=== PATIENT | female | born 1970 | race African-American/Black ===

== ENCOUNTER 2019-03-24 05:00 | Inpatient (IN) ==
[2019-03-25] MEDS ORDERED: DEXTROSE 10% 250 ML BAG IV PRN (10:21)
[2019-03-25] MEDS ORDERED: GLUCAGON 1 MG VIAL IM PRN (10:21)
[2019-03-25] MEDS ORDERED: CEFUROXIME INJ 1,500 MG in SODIUM CHLORIDE 0.9% 100 ML IV ONE (10:21)
[2019-03-25 10:54] LABS: Basophils % 0.7 % (0.0-0.8); Eosinophils # 0.2 10*3/uL (0.0-0.87); Hematocrit 39.7 VOL% (35.7-47.0); Hemoglobin 12.5 GM/DL (12.0-16.0); Immature Granulocytes % 0.2 %; Immature Granulocytes Absolute 0.01 #; Lymphocytes # 1.5 10*3/uL (1.4-4.0); Lymphocytes % 25.5 % (21.3-54.2); Mean Corpuscular HGB Conc 31.5 GM/DL (32-36); Mean Corpuscular Volume 85.6 FL (87-102); Mean Platelet Volume 12.1 FL (9.6-12.0); Neutrophils % 63.6 % (38.7-73.9); Platelet Count 207 T/CUMM (130-400); Red Blood Count 4.64 MC/CUMM (3.8-5.5); Red Cell Distribution Width 13.3 % (9.3-17.3)
[2019-03-25 11:26] LABS: Alanine Aminotransferase 24 U/L (13-56); Albumin 3.6 G/DL (3.4-5.0); Alkaline Phosphatase 67 U/L (45-117); Aspartate Amino Transferase 17 U/L (0-37); Bilirubin,Total < 0.39 MG/DL (0.2-1.0); Blood Urea Nitrogen 18 MG/DL (7-18); Estimated Glom Filtration Rate 99 ML/MIN; Glucose 142 MG/DL (74-106); Total Protein 8.4 G/DL (6.4-8.3)
[2019-03-25] MEDS: INSULIN LISPRO 100 UNIT/ML SUBCUT SCH ×3 (11:59→23:35)
[2019-03-25] MEDS ORDERED: NITROGLYCERIN SL 0.4 MG TABLET SL PRN (12:00)
[2019-03-25 12:30] LABS: ABG Base Excess 1.5 MMOL/L (-2.5-2.5); ABG HCO3 25.7 MMOL/L (20-26); ABG Oxygen Saturation 96.2 % (95-100); ABG PCO2 41.6 MM HG (35-48); ABG PH 7.409 (7.35-7.45); ABG PO2 82.4 MM HG (80-95); ABG TCO2 23.2 MMOL/L (23-27); Allen Test Positive; Pt O2 Delivery Device Room Air
[2019-03-25] MEDS ORDERED: CLORAZEPATE 3.75 MG TABLET PO PRN (12:32)
[2019-03-25] MEDS ORDERED: DIAZEPAM 5 MG TABLET PO ONE (16:31)
[2019-03-25] MEDS ORDERED: RANITIDINE 150 MG TABLET PO ONE (16:31)
[2019-03-25] MEDS: CHLORHEXIDINE 4% SOLN 118 ML BOTTLE TOP SCH ×2 (16:59→23:34)
[2019-03-25] MEDS: SODIUM CHLORIDE 0.9% 1,000 ML IV SCH (20:00)
[2019-03-25] MEDS: PANTOPRAZOLE 40 MG TABLET PO SCH (20:52)
[2019-03-25] MEDS: hydrALAZINE 25 MG TABLET PO SCH (20:52)
[2019-03-25] MEDS: CHLORHEXIDINE 0.12% ORAL RINSE 60 ML BOTTLE SWISH/SPIT SCH (20:53)
[2019-03-25] MEDS ORDERED: traZODone 50 MG TABLET PO PRN (21:00)
[2019-03-26] MEDS ORDERED: PAPAVERINE 60 MG/2 ML VIAL ONE (04:24)
[2019-03-26] MEDS ORDERED: VANCOMYCIN 1,000 MG VIAL ONE (04:25)
[2019-03-26] MEDS ORDERED: VANCOMYCIN 500 MG VIAL ONE (04:25)
[2019-03-26] MEDS ORDERED: VANCOMYCIN INJ 1,000 MG in SODIUM CHLORIDE 0.9% 250 ML IV ONE (05:00)
[2019-03-26] MEDS ORDERED: DIAZEPAM 5 MG TABLET PO ONE (06:00)
[2019-03-26] MEDS ORDERED: RANITIDINE 150 MG TABLET PO ONE (06:00)
[2019-03-26] MEDS ORDERED: MIDAZOLAM 10 MG/2 ML VIAL ONE ×2 (06:10)
[2019-03-26] MEDS ORDERED: SUFentanil 250 MCG/5 ML AMP ONE (06:10)
[2019-03-26 08:00] LABS: ABG Base Excess 0.6 MMOL/L (-2.5-2.5); ABG HCO3 24.2 MMOL/L (20-26); ABG Oxygen Saturation 99.3 % (95-100); ABG PH 7.457 (7.35-7.45); ABG PO2 496.5 MM HG (80-95); ABG TCO2 25.2 MMOL/L (23-27); Glucose Heart Surgery 116 MG/DL (74-106); Hemoglobin Heart Surgery 11.1 G/DL (12.0-16.0); Ionized Calcium Arterial 1.08 MMOL/L (1.21-1.46); PH Patient Temp Arterial 7.457; PO2 Patient Temp Arterial 496.5 MM HG; Patient Temperature 37 CELCIUS; Potassium Heart/CVR 3.2 MMOL/L (3.5-5.1); Sodium Heart/CVR 138 MMOL/L (135-145)
[2019-03-26 08:40] LABS: Apearance,Urine CLEAR (Clear); Bacteria,Urine Occasional /HPF (Few); Bilirubin,Urine Negative (Negative); Blood, Urine Negative (Negative); Glucose,Urine (UA) >=500 mg/dL (Negative); Ketones,Urine Negative (Negative); Nitrite,Urine Negative (Negative); Protein,Urine Negative; Squamous Epithelial Cell,Urine Occasional /HPF (0-10); Urine Color Straw (Yellow); Urine Specific Gravity 1.022 (1.001-1.035); Urine Urobilinogen < 2.0 EU/DL (0.2-1.0); WBC,Urine <1 /HPF (0-6)
[2019-03-26] MEDS ORDERED: PHENYLEPHRINE DRIP 40 MG/250 ML PREMIX IV ONE (08:44)
[2019-03-26] MEDS ORDERED: HEPARIN/NACL 0.9% 2 UNITS/ML 500 ML IV ONE (09:44)
[2019-03-26] MEDS ORDERED: PHENYLEPHRINE DRIP 20 MG/250 ML PREMIX IV ONE (09:44)
[2019-03-26] MEDS ORDERED: NITROGLYCERIN DRIP 50 MG/250 ML BOTTLE IV ONE (09:44)
[2019-03-26] MEDS ORDERED: AMINOCAPROIC ACID 5,000 MG/20 ML VIAL ONE (09:44)
[2019-03-26 09:49] LABS: Hematocrit Heart Surgery 21.7 PERCENT (37-47); Hemoglobin Heart Surgery 6.9 G/DL (12.0-16.0); PCO2 Patient Temp Venous 31.8 MM HG; PH Patient Temp Venous 7.501; PO2 Patient Temp Venous 33.6 MM HG; VBG Base Excess 2.1 MEQ/L (0-4); VBG HCO3 26.1 MEQ/L (24-28); VBG Oxygen Saturation 80.6 %; VBG PCO2 36.8 MMHG (41-51); VBG PH 7.456; VBG PO2 41.4 MMHG (17-40)
[2019-03-26 10:21] LABS: Hemoglobin Heart Surgery 7.7 G/DL (12.0-16.0); PCO2 Patient Temp Venous 35.1 MM HG; PH Patient Temp Venous 7.461; PO2 Patient Temp Venous 39.1 MM HG; Potassium Heart/CVR 3.9 MMOL/L (3.5-5.1); VBG Base Excess 1.5 MEQ/L (0-4); VBG HCO3 25.6 MEQ/L (24-28); VBG Oxygen Saturation 84.7 %; VBG PCO2 40.5 MMHG (41-51); VBG PH 7.417
[2019-03-26 10:53] LABS: Hematocrit Heart Surgery 26.5 PERCENT (37-47); Hemoglobin Heart Surgery 8.5 G/DL (12.0-16.0); PH Patient Temp Venous 7.421; PO2 Patient Temp Venous 42.4 MM HG; Potassium Heart/CVR 4.1 MMOL/L (3.5-5.1); VBG Base Excess 1.6 MEQ/L (0-4); VBG HCO3 25.5 MEQ/L (24-28); VBG Oxygen Saturation 78.4 %; VBG PH 7.421; VBG PO2 42.4 MMHG (17-40)
[2019-03-26 11:22] LABS: Hematocrit Heart Surgery 25.1 PERCENT (37-47); Hemoglobin Heart Surgery 8.1 G/DL (12.0-16.0); PCO2 Patient Temp Venous 33.9 MM HG; PH Patient Temp Venous 7.472; PO2 Patient Temp Venous 42.5 MM HG; Potassium Heart/CVR 4.2 MMOL/L (3.5-5.1); VBG Base Excess 1.4 MEQ/L (0-4); VBG HCO3 25.4 MEQ/L (24-28); VBG PCO2 33.9 MMHG (41-51); VBG PH 7.472; VBG PO2 42.5 MMHG (17-40)
[2019-03-26] MEDS ORDERED: LIDOCAINE 2% 5 ML VIAL ONE ×2 (11:43→12:46)
[2019-03-26] MEDS ORDERED: MANNITOL 100 GM/500 ML BAG IV ONE (11:43)
[2019-03-26] MEDS ORDERED: DEXTROSE 5% KCL 20 MEQ 20 MEQ/1,000 ML BAG IV ONE (11:43)
[2019-03-26] MEDS ORDERED: MAGNESIUM SULFATE 5 GM/10 ML VIAL IV ONE (11:44)
[2019-03-26] MEDS ORDERED: ALBUMIN 25% 25 GM/100 ML VIAL IV ONE (11:44)
[2019-03-26] MEDS ORDERED: FUROSEMIDE 20 MG/2 ML VIAL ONE (11:44)
[2019-03-26] MEDS ORDERED: PROTAMINE SULFATE 250 MG/25 ML VIAL IV ONE (11:44)
[2019-03-26] MEDS ORDERED: ALBUMIN 5% 12.5 GM/250 ML VIAL IV ONE (11:44)
[2019-03-26] MEDS ORDERED: SODIUM BICARBONATE 50 MEQ/50 ML VIAL IV ONE (11:44)
[2019-03-26] MEDS ORDERED: methylPREDNISolone SOD SUC 1,000 MG/8 ML VIAL ONE (11:44)
[2019-03-26] MEDS ORDERED: HEPARIN 10,000 UNIT/10 ML VIAL ONE (11:44)
[2019-03-26 11:58] LABS: ABG Base Excess -0.1 MMOL/L (-2.5-2.5); ABG HCO3 24.3 MMOL/L (20-26); ABG Oxygen Saturation 99.7 % (95-100); ABG PH 7.421 (7.35-7.45); ABG TCO2 22.3 MMOL/L (23-27); Glucose Heart Surgery 212 MG/DL (74-106); Hematocrit Heart Surgery 26.2 PERCENT (37-47); Hemoglobin Heart Surgery 8.4 G/DL (12.0-16.0); Ionized Calcium Arterial 1.22 MMOL/L (1.21-1.46); PH Patient Temp Arterial 7.421; Patient Temperature 37 CELCIUS; Potassium Heart/CVR 3.8 MMOL/L (3.5-5.1); Sodium Heart/CVR 140 MMOL/L (135-145)
[2019-03-26] MEDS ORDERED: THROMBIN TOPICAL (RECOMBINANT) 5,000 UNIT VIAL TOP ONE (11:59)
[2019-03-26] MEDS ORDERED: SEVOFLURANE 1 UNIT/15 MINUTE INH ONE (12:47)
[2019-03-26] MEDS ORDERED: VECURONIUM 10 MG VIAL IV ONE (12:47)
[2019-03-26] MEDS ORDERED: ETOMIDATE 40 MG/20 ML VIAL IV ONE (12:47)
[2019-03-26] MEDS ORDERED: SODIUM CHLORIDE 0.9% 100 ML IV ONE (12:47)
[2019-03-26] MEDS ORDERED: LACTATED RINGERS 1,000 ML IV ONE (12:47)
[2019-03-26] MEDS ORDERED: SODIUM CHLORIDE 0.9% 250 ML IV ONE (12:47)
[2019-03-26] MEDS ORDERED: MAGNESIUM SULF RIDER 2 GM in PREMIX 1 EACH IV PRN (12:48)
[2019-03-26] MEDS ORDERED: SODIUM CHLORIDE 0.45% 1,000 ML IV SCH ×2 (12:48)
[2019-03-26] MEDS ORDERED: ONDANSETRON 4 MG/2 ML VIAL IV PRN (12:48)
[2019-03-26] MEDS ORDERED: MIDAZOLAM 10 MG/2 ML VIAL IV PRN (12:48)
[2019-03-26] MEDS ORDERED: NITROPRUSSIDE 100 MG in DEXTROSE 5% 250 ML IV PRN (12:48)
[2019-03-26] MEDS ORDERED: MORPHINE 10 MG/1 ML VIAL IV PRN (12:48)
[2019-03-26] MEDS ORDERED: INSULIN REGULAR 100 UNIT/ML IV ONE (12:48)
[2019-03-26] MEDS ORDERED: MAGNESIUM SULF RIDER 4 GM in PREMIX 1 EACH IV PRN (12:48)
[2019-03-26] MEDS ORDERED: INSULIN REGULAR DRIP 100 ML IV SCH (12:48)
[2019-03-26] MEDS ORDERED: CALCIUM CHLORIDE 1,000 MG/10 ML SYRINGE IV PRN (12:48)
[2019-03-26] MEDS ORDERED: VECURONIUM 10 MG VIAL IV PRN ×2 (12:48)
[2019-03-26] MEDS ORDERED: CHLORHEXIDINE 4% SOLN 118 ML BOTTLE TOP PRN (12:48)
[2019-03-26] MEDS ORDERED: INSULIN REGULAR 100 UNIT/ML IV PRN (12:48)
[2019-03-26] MEDS ORDERED: ALBUMIN 5% 12.5 GM in PREMIX 1 EACH IV PRN (12:48)
[2019-03-26] MEDS ORDERED: PHENYLEPHRINE DRIP 40 MG/250 ML PREMIX IV PRN (12:48)
[2019-03-26] MEDS ORDERED: LACTATED RINGERS 250 ML IV PRN (12:48)
[2019-03-26] MEDS ORDERED: ACETAMINOPHEN 650 MG SUPP RECTAL PRN (12:48)
[2019-03-26] MEDS ORDERED: DEXTROSE 10% 250 ML BAG IV PRN ×2 (12:55)
[2019-03-26 13:07] LABS: ABG Base Excess 0.6 MMOL/L (-2.5-2.5); ABG PCO2 35.5 MM HG (35-48); ABG PH 7.444 (7.35-7.45); ABG TCO2 22.3 MMOL/L (23-27); Glucose Heart Surgery 225 MG/DL (74-106); Hematocrit Heart Surgery 29.3 PERCENT (37-47); Hemoglobin Heart Surgery 9.5 G/DL (12.0-16.0); Potassium Heart/CVR 3.8 MMOL/L (3.5-5.1)
[2019-03-26 13:15] LABS: Basophils % 0.3 % (0.0-0.8); Eosinophils # 0.1 10*3/uL (0.0-0.87); Eosinophils % 0.8 % (0.00-10.9); Hematocrit 28.7 VOL% (35.7-47.0); Hemoglobin 9.2 GM/DL (12.0-16.0); Immature Granulocytes % 0.3 %; Immature Granulocytes Absolute 0.02 #; Lymphocytes # 0.8 10*3/uL (1.4-4.0); Lymphocytes % 10.4 % (21.3-54.2); Mean Corpuscular HGB Conc 32.1 GM/DL (32-36); Mean Corpuscular Volume 84.9 FL (87-102); Mean Platelet Volume 12.8 FL (9.6-12.0); Neutrophils % 84.2 % (38.7-73.9); Platelet Count 129 T/CUMM (130-400); Red Blood Count 3.38 MC/CUMM (3.8-5.5); Red Cell Distribution Width 13.2 % (9.3-17.3); White Blood Count 7.6 T/CUMM (4-12)
[2019-03-26] MEDS: POTASSIUM CHLORIDE RIDER 20 MEQ in PREMIX 1 EACH IV PRN ×4 (13:23→21:23)
[2019-03-26 13:28] LABS: INR 1.1; PT Patient Result 11.5 SECS (9.6-12.2); Partial Thromboplastin Time 25.7 SECS (20.8-36.0)
[2019-03-26 13:33] LABS: CKMB % 5.4 %
[2019-03-26 13:36] LABS: Troponin I 2.92 NG/ML (0.00-0.045)
[2019-03-26] MEDS: LACTATED RINGERS 1,000 ML IV PRN ×2 (13:45→14:45)
[2019-03-26] MEDS: POTASSIUM CHLORIDE RIDER 10 MEQ in PREMIX 1 EACH IV PRN ×3 (14:05→22:14)
[2019-03-26] MEDS: MIDAZOLAM 2 MG/2 ML VIAL IV PRN (14:07)
[2019-03-26 14:12] LABS: Albumin 3.2 G/DL (3.4-5.0); Bilirubin,Total 0.6 MG/DL (0.2-1.0); Calcium 8.3 MG/DL (8.5-10.1); Osmolality,Calculated 288.1 MOS/KG (273-304); Total Protein 6.1 G/DL (6.4-8.3)
[2019-03-26 15:33] LABS: ABG HCO3 24.5 MMOL/L (20-26); ABG Oxygen Saturation 99.5 % (95-100); ABG PCO2 34.1 MM HG (35-48); ABG PH 7.449 (7.35-7.45); ABG TCO2 21.7 MMOL/L (23-27); Glucose Heart Surgery 198 MG/DL (74-106); Hematocrit Heart Surgery 28.5 PERCENT (37-47); Hemoglobin Heart Surgery 9.2 G/DL (12.0-16.0); Potassium Heart/CVR 3.6 MMOL/L (3.5-5.1)
[2019-03-26 18:08] LABS: ABG Base Excess -2.6 MMOL/L (-2.5-2.5); ABG HCO3 22.2 MMOL/L (20-26); ABG Oxygen Saturation 98.4 % (95-100); ABG PH 7.287 (7.35-7.45); ABG TCO2 22.5 MMOL/L (23-27); Glucose Heart Surgery 170 MG/DL (74-106); Hematocrit Heart Surgery 29.8 PERCENT (37-47); Hemoglobin Heart Surgery 9.6 G/DL (12.0-16.0); Potassium Heart/CVR 3.6 MMOL/L (3.5-5.1)
[2019-03-26] MEDS ORDERED: FUROSEMIDE 40 MG/4 ML VIAL IV ONE (18:23)
[2019-03-26 18:57] LABS: ABG Base Excess -1.5 MMOL/L (-2.5-2.5); ABG HCO3 23.1 MMOL/L (20-26); ABG Oxygen Saturation 99.4 % (95-100); ABG PCO2 33.1 MM HG (35-48); ABG PH 7.434 (7.35-7.45); ABG TCO2 20.3 MMOL/L (23-27); Glucose Heart Surgery 161 MG/DL (74-106); Hematocrit Heart Surgery 28.5 PERCENT (37-47); Hemoglobin Heart Surgery 9.2 G/DL (12.0-16.0); Potassium Heart/CVR 4.2 MMOL/L (3.5-5.1)
[2019-03-26] MEDS: INSULIN LISPRO 100 UNIT/ML SUBCUT SCH (19:28)
[2019-03-26] MEDS: hydrALAZINE 25 MG TABLET PO SCH (19:29)
[2019-03-26] MEDS: PANTOPRAZOLE 40 MG TABLET PO SCH (19:29)
[2019-03-26] MEDS: CHLORHEXIDINE 0.12% ORAL RINSE 60 ML BOTTLE SWISH/SPIT SCH ×2 (19:29→20:35)
[2019-03-26] MEDS: CHLORHEXIDINE 4% SOLN 118 ML BOTTLE TOP SCH (19:29)
[2019-03-26] MEDS: SODIUM CHLORIDE 0.9% 1,000 ML IV SCH (19:30)
[2019-03-26 19:58] LABS: ABG Base Excess -2.2 MMOL/L (-2.5-2.5); ABG HCO3 22.6 MMOL/L (20-26); ABG Oxygen Saturation 99.2 % (95-100); ABG PCO2 36.1 MM HG (35-48); ABG PH 7.397 (7.35-7.45); ABG TCO2 20.4 MMOL/L (23-27); Glucose Heart Surgery 167 MG/DL (74-106); Hemoglobin Heart Surgery 9.4 G/DL (12.0-16.0); Potassium Heart/CVR 3.6 MMOL/L (3.5-5.1)
[2019-03-26] MEDS: KETOROLAC 30 MG/1 ML VIAL IV SCH (20:22)
[2019-03-26] MEDS: VANCOMYCIN INJ 1,000 MG in SODIUM CHLORIDE 0.9% 250 ML IV SCH (20:31)
[2019-03-26 21:00] LABS: ABG Base Excess -2.4 MMOL/L (-2.5-2.5); ABG HCO3 22.4 MMOL/L (20-26); ABG Oxygen Saturation 99.4 % (95-100); ABG PCO2 32.6 MM HG (35-48); ABG PH 7.424 (7.35-7.45); ABG TCO2 19.6 MMOL/L (23-27); Glucose Heart Surgery 169 MG/DL (74-106); Hematocrit Heart Surgery 27.8 PERCENT (37-47); Potassium Heart/CVR 3.6 MMOL/L (3.5-5.1)
[2019-03-26 21:22] LABS: CKMB % 4.3 %
[2019-03-26 21:25] LABS: Troponin I 3.81 NG/ML (0.00-0.045)
[2019-03-26 21:49] LABS: ABG Base Excess -2.8 MMOL/L (-2.5-2.5); ABG HCO3 22.1 MMOL/L (20-26); ABG Oxygen Saturation 99.2 % (95-100); ABG PCO2 36.9 MM HG (35-48); ABG PH 7.381 (7.35-7.45); ABG TCO2 20.1 MMOL/L (23-27); Glucose Heart Surgery 160 MG/DL (74-106); Hematocrit Heart Surgery 28.6 PERCENT (37-47); Hemoglobin Heart Surgery 9.2 G/DL (12.0-16.0); Potassium Heart/CVR 4.2 MMOL/L (3.5-5.1)
[2019-03-26] MEDS: MORPHINE 4 MG/1 ML VIAL IV PRN (22:00)
[2019-03-26 22:34] LABS: ABG Base Excess -2.2 MMOL/L (-2.5-2.5); ABG HCO3 22.6 MMOL/L (20-26); ABG Oxygen Saturation 99.1 % (95-100); ABG PCO2 41.9 MM HG (35-48); ABG PH 7.352 (7.35-7.45); ABG TCO2 21.5 MMOL/L (23-27); Glucose Heart Surgery 151 MG/DL (74-106); Hematocrit Heart Surgery 28.2 PERCENT (37-47); Hemoglobin Heart Surgery 9.1 G/DL (12.0-16.0); Potassium Heart/CVR 4.4 MMOL/L (3.5-5.1)
[2019-03-26 23:35] LABS: ABG Base Excess -2.1 MMOL/L (-2.5-2.5); ABG HCO3 22.6 MMOL/L (20-26); ABG PCO2 43.1 MM HG (35-48); ABG PH 7.345 (7.35-7.45); ABG TCO2 21.7 MMOL/L (23-27); Glucose Heart Surgery 141 MG/DL (74-106); Hematocrit Heart Surgery 28.4 PERCENT (37-47); Hemoglobin Heart Surgery 9.1 G/DL (12.0-16.0); Potassium Heart/CVR 4.2 MMOL/L (3.5-5.1)
[2019-03-27] MEDS ORDERED: FUROSEMIDE 40 MG/4 ML VIAL ONE (00:34)
[2019-03-27 01:36] LABS: ABG Base Excess -1.1 MMOL/L (-2.5-2.5); ABG HCO3 23.5 MMOL/L (20-26); ABG Oxygen Saturation 97.4 % (95-100); ABG PCO2 46.8 MM HG (35-48); ABG PH 7.336 (7.35-7.45); ABG PO2 96.4 MM HG (80-95); ABG TCO2 22.6 MMOL/L (23-27); Glucose Heart Surgery 117 MG/DL (74-106); Hematocrit Heart Surgery 34.7 PERCENT (37-47); Hemoglobin Heart Surgery 11.3 G/DL (12.0-16.0); Potassium Heart/CVR 4.1 MMOL/L (3.5-5.1)
[2019-03-27] MEDS: KETOROLAC 30 MG/1 ML VIAL IV SCH ×4 (02:16→21:09)
[2019-03-27 04:07] LABS: ABG Base Excess -1.4 MMOL/L (-2.5-2.5); ABG HCO3 23.2 MMOL/L (20-26); ABG Oxygen Saturation 98.3 % (95-100); ABG PCO2 45.1 MM HG (35-48); ABG PH 7.342 (7.35-7.45); ABG TCO2 22.7 MMOL/L (23-27); Glucose Heart Surgery 127 MG/DL (74-106); Hematocrit Heart Surgery 27.2 PERCENT (37-47); Hemoglobin Heart Surgery 8.8 G/DL (12.0-16.0); Potassium Heart/CVR 4.2 MMOL/L (3.5-5.1)
[2019-03-27 04:25] LABS: Basophils % 0.1 % (0.0-0.8); Hematocrit 28.3 VOL% (35.7-47.0); Hemoglobin 8.9 GM/DL (12.0-16.0); Immature Granulocytes % 0.5 %; Immature Granulocytes Absolute 0.07 #; Lymphocytes # 0.7 10*3/uL (1.4-4.0); Lymphocytes % 4.9 % (21.3-54.2); Mean Corpuscular HGB Conc 31.4 GM/DL (32-36); Mean Corpuscular Volume 86.5 FL (87-102); Neutrophils % 87.5 % (38.7-73.9); Platelet Count 140 T/CUMM (130-400); Red Blood Count 3.27 MC/CUMM (3.8-5.5); Red Cell Distribution Width 13.7 % (9.3-17.3); White Blood Count 13.8 T/CUMM (4-12)
[2019-03-27 04:47] LABS: Alanine Aminotransferase 20 U/L (13-56); Albumin 3.3 G/DL (3.4-5.0); Alkaline Phosphatase 38 U/L (45-117); Aspartate Amino Transferase 40 U/L (0-37); Bilirubin,Direct < 0.100 MG/DL (0.0-0.20); Bilirubin,Total < 0.39 MG/DL (0.2-1.0); Blood Urea Nitrogen 15 MG/DL (7-18); CKMB % 4.1 %; Calcium 7.7 MG/DL (8.5-10.1); Estimated Glom Filtration Rate 134 ML/MIN; Glucose 111 MG/DL (74-106); Total Protein 6.1 G/DL (6.4-8.3)
[2019-03-27 04:53] LABS: Troponin I 3.39 NG/ML (0.00-0.045)
[2019-03-27 05:11] LABS: Band Neutrophils 1 % (0-10); Lymphocytes 7 % (20-55); Segmented Neutrophils 87 % (50-85); Total Cells Counted 100
[2019-03-27 05:12] LABS: Hypochromasia 1+; Platelet Estimate Normal
[2019-03-27] MEDS: MORPHINE 4 MG/1 ML VIAL IV PRN ×2 (08:05)
[2019-03-27] MEDS: METOPROLOL TARTRATE 25 MG TABLET PO SCH (08:25)
[2019-03-27] MEDS: VANCOMYCIN INJ 1,000 MG in SODIUM CHLORIDE 0.9% 250 ML IV SCH ×2 (08:26→21:10)
[2019-03-27] MEDS: MIDAZOLAM 2 MG/2 ML VIAL IV PRN (09:16)
[2019-03-27] MEDS ORDERED: ALUMINUM/MAGNES/SIMETH MAX STR 30 ML UDCUP PO PRN (10:33)
[2019-03-27] MEDS ORDERED: ZALEPLON 5 MG CAPSULE PO PRN (10:33)
[2019-03-27] MEDS ORDERED: MAGNESIUM SULF RIDER 2 GM in PREMIX 1 EACH IV PRN (10:33)
[2019-03-27] MEDS ORDERED: POTASSIUM CHLORIDE 20 MEQ TABLET PO PRN (10:33)
[2019-03-27] MEDS ORDERED: ONDANSETRON 4 MG/2 ML VIAL IV PRN (10:33)
[2019-03-27] MEDS ORDERED: DEXTROSE 50% 25 GM/50 ML VIAL IV PRN (10:33)
[2019-03-27] MEDS ORDERED: SODIUM CHLOR 0.45% KCL 20 MEQ 20 MEQ/1,000 ML BAG IV SCH (10:33)
[2019-03-27] MEDS ORDERED: MAGNESIUM HYDROXIDE SUSP 30 ML UDCUP PO PRN (10:33)
[2019-03-27] MEDS ORDERED: MAGNESIUM SULF RIDER 4 GM in PREMIX 1 EACH IV PRN (10:33)
[2019-03-27] MEDS ORDERED: ACETAMINOPHEN 325 MG TABLET PO PRN (10:33)
[2019-03-27] MEDS ORDERED: GLUCAGON 1 MG VIAL IM PRN (10:33)
[2019-03-27] MEDS: BRIMONIDINE/TIMOLOL OPH SOLN 5 ML BOTTLE BOTH EYES SCH (11:04)
[2019-03-27] MEDS: oxyCODONE/ACETAMINOPHEN 5-325 MG TABLET PO PRN ×4 (11:51→22:51)
[2019-03-27 13:43] LABS: Troponin I 2.61 NG/ML (0.00-0.045)
[2019-03-27] MEDS: hydrALAZINE 25 MG TABLET PO SCH ×2 (15:20→21:05)
[2019-03-27] MEDS: CHLORHEXIDINE 0.12% ORAL RINSE 60 ML BOTTLE SWISH/SPIT SCH ×2 (16:41→21:06)
[2019-03-27] MEDS: OLANZapine 5 MG TABLET PO SCH (21:05)
[2019-03-27] MEDS: ATORVASTATIN 40 MG TABLET PO SCH (21:06)
[2019-03-27] MEDS: INSULIN REGULAR 100 UNIT/ML SUBCUT SCH (21:08)
[2019-03-28] MEDS: INSULIN REGULAR 100 UNIT/ML SUBCUT SCH ×7 (00:43→23:55)
[2019-03-28] MEDS: KETOROLAC 30 MG/1 ML VIAL IV SCH ×4 (02:09→20:32)
[2019-03-28 05:41] LABS: Basophils % 0.1 % (0.0-0.8); Hematocrit 24.6 VOL% (35.7-47.0); Hemoglobin 7.7 GM/DL (12.0-16.0); Immature Granulocytes % 0.5 %; Immature Granulocytes Absolute 0.06 #; Lymphocytes # 1.6 10*3/uL (1.4-4.0); Lymphocytes % 12.2 % (21.3-54.2); Mean Corpuscular HGB Conc 31.3 GM/DL (32-36); Mean Corpuscular Volume 88.5 FL (87-102); Mean Platelet Volume 14.1 FL (9.6-12.0); Monocytes % 6.3 % (1.7-12.7); Neutrophils % 80.9 % (38.7-73.9); Platelet Count 124 T/CUMM (130-400); Red Blood Count 2.78 MC/CUMM (3.8-5.5); Red Cell Distribution Width 14.2 % (9.3-17.3); White Blood Count 12.8 T/CUMM (4-12)
[2019-03-28] MEDS ORDERED: FUROSEMIDE 40 MG/4 ML VIAL IV ONE (06:00)
[2019-03-28 06:03] LABS: Alanine Aminotransferase 16 U/L (13-56); Albumin 2.8 G/DL (3.4-5.0); Alkaline Phosphatase 37 U/L (45-117); Aspartate Amino Transferase 22 U/L (0-37); Bilirubin,Direct < 0.050 MG/DL (0.0-0.20); Bilirubin,Total < 0.39 MG/DL (0.2-1.0); Blood Urea Nitrogen 16 MG/DL (7-18); Calcium 7.7 MG/DL (8.5-10.1); Estimated Glom Filtration Rate 137 ML/MIN; Glucose 197 MG/DL (74-106); Osmolality,Calculated 284.4 MOS/KG (273-304); Total Protein 6.1 G/DL (6.4-8.3)
[2019-03-28 06:05] LABS: Alanine Aminotransferase 17 U/L (13-56); Albumin 2.8 G/DL (3.4-5.0); Alkaline Phosphatase 39 U/L (45-117); Aspartate Amino Transferase 24 U/L (0-37); Bilirubin,Direct < 0.100 MG/DL (0.0-0.20); Bilirubin,Indirect 0.3 MG/DL (0.0-1.0); Bilirubin,Total < 0.39 MG/DL (0.2-1.0); CKMB % 2.1 %; Total Protein 5.6 G/DL (6.4-8.3)
[2019-03-28] MEDS ORDERED: SODIUM CHLORIDE 0.9% 1,000 ML IV PRN ×2 (07:21→07:46)
[2019-03-28] MEDS ORDERED: lisinopriL 20 MG TABLET PO SCH (09:00)
[2019-03-28] MEDS: CHLORHEXIDINE 0.12% ORAL RINSE 60 ML BOTTLE SWISH/SPIT SCH ×2 (09:26→20:33)
[2019-03-28] MEDS: DOCUSATE SODIUM 100 MG CAPSULE PO SCH (09:28)
[2019-03-28] MEDS: metFORMIN 500 MG TABLET PO SCH ×2 (09:28→20:32)
[2019-03-28] MEDS: FERROUS SULFATE 325 MG TABLET PO SCH (09:29)
[2019-03-28] MEDS: ASPIRIN EC 81 MG TABLET PO SCH (09:29)
[2019-03-28] MEDS: METOPROLOL TARTRATE 25 MG TABLET PO SCH (09:29)
[2019-03-28] MEDS: PANTOPRAZOLE 40 MG TABLET PO SCH (09:29)
[2019-03-28] MEDS: oxyCODONE/ACETAMINOPHEN 5-325 MG TABLET PO PRN ×2 (09:29→20:32)
[2019-03-28] MEDS: SERTRALINE 100 MG TABLET PO SCH (09:29)
[2019-03-28] MEDS: VANCOMYCIN INJ 1,000 MG in SODIUM CHLORIDE 0.9% 250 ML IV SCH (11:05)
[2019-03-28] MEDS: BRIMONIDINE/TIMOLOL OPH SOLN 5 ML BOTTLE BOTH EYES SCH (11:07)
[2019-03-28] MEDS: OLANZapine 5 MG TABLET PO SCH (20:32)
[2019-03-28] MEDS: ATORVASTATIN 40 MG TABLET PO SCH (20:32)
[2019-03-28 22:01] LABS: Hemoglobin 9.5 GM/DL (12.0-16.0)
[2019-03-29] MEDS: KETOROLAC 30 MG/1 ML VIAL IV SCH (02:56)
[2019-03-29] MEDS: INSULIN REGULAR 100 UNIT/ML SUBCUT SCH ×5 (05:52→21:06)
[2019-03-29 05:53] LABS: Basophils % 0.2 % (0.0-0.8); Eosinophils # 0.1 10*3/uL (0.0-0.87); Eosinophils % 1.2 % (0.00-10.9); Hemoglobin 9.6 GM/DL (12.0-16.0); Immature Granulocytes % 0.3 %; Immature Granulocytes Absolute 0.03 #; Lymphocytes % 20.9 % (21.3-54.2); Mean Corpuscular Volume 87.8 FL (87-102); Mean Platelet Volume 13.4 FL (9.6-12.0); Monocytes % 8.4 % (1.7-12.7); Platelet Count 140 T/CUMM (130-400); Red Blood Count 3.53 MC/CUMM (3.8-5.5); Red Cell Distribution Width 14.6 % (9.3-17.3); White Blood Count 9.7 T/CUMM (4-12)
[2019-03-29 06:16] LABS: Albumin 2.7 G/DL (3.4-5.0); Bilirubin,Direct 0.14 MG/DL (0.0-0.20); Bilirubin,Total 0.5 MG/DL (0.2-1.0); Calcium 7.9 MG/DL (8.5-10.1); Osmolality,Calculated 285.3 MOS/KG (273-304); Total Protein 6.4 G/DL (6.4-8.3)
[2019-03-29 06:24] LABS: Alanine Aminotransferase 16 U/L (13-56); Albumin 2.6 G/DL (3.4-5.0); Alkaline Phosphatase 47 U/L (45-117); Aspartate Amino Transferase 19 U/L (0-37); Bilirubin,Indirect 0.4 MG/DL (0.0-1.0); Total Protein 6.5 G/DL (6.4-8.3)
[2019-03-29] MEDS ORDERED: KETOROLAC 30 MG/1 ML VIAL IV PRN (07:14)
[2019-03-29] MEDS: SERTRALINE 100 MG TABLET PO SCH (08:43)
[2019-03-29] MEDS: FERROUS SULFATE 325 MG TABLET PO SCH (08:43)
[2019-03-29] MEDS: metFORMIN 500 MG TABLET PO SCH ×2 (08:43→21:06)
[2019-03-29] MEDS: ASPIRIN EC 81 MG TABLET PO SCH (08:43)
[2019-03-29] MEDS: METOPROLOL TARTRATE 25 MG TABLET PO SCH (08:44)
[2019-03-29] MEDS: PANTOPRAZOLE 40 MG TABLET PO SCH (08:44)
[2019-03-29] MEDS: DOCUSATE SODIUM 100 MG CAPSULE PO SCH (08:44)
[2019-03-29] MEDS: BRIMONIDINE/TIMOLOL OPH SOLN 5 ML BOTTLE BOTH EYES SCH (09:49)
[2019-03-29] MEDS ORDERED: METOPROLOL TARTRATE 25 MG TABLET PO SCH (10:21)
[2019-03-29] MEDS: oxyCODONE/ACETAMINOPHEN 5-325 MG TABLET PO PRN ×2 (10:40→21:07)
[2019-03-29] MEDS: CHLORHEXIDINE 0.12% ORAL RINSE 60 ML BOTTLE SWISH/SPIT SCH ×2 (10:44→21:08)
[2019-03-29] MEDS: ATORVASTATIN 40 MG TABLET PO SCH (21:06)
[2019-03-29] MEDS: OLANZapine 5 MG TABLET PO SCH (21:06)
[2019-03-30] MEDS ORDERED: LACTULOSE 20 GM/30 ML UDCUP PO PRN (08:29)
[2019-03-30] MEDS: INSULIN REGULAR 100 UNIT/ML SUBCUT SCH ×4 (08:29→20:52)
[2019-03-30] MEDS: BRIMONIDINE/TIMOLOL OPH SOLN 5 ML BOTTLE BOTH EYES SCH (09:37)
[2019-03-30] MEDS: METOPROLOL TARTRATE 25 MG TABLET PO SCH (09:38)
[2019-03-30] MEDS: ASPIRIN EC 81 MG TABLET PO SCH (09:38)
[2019-03-30] MEDS: hydroCHLOROthiazide 25 MG TABLET PO SCH (09:38)
[2019-03-30] MEDS: DOCUSATE SODIUM 100 MG CAPSULE PO SCH (09:39)
[2019-03-30] MEDS: SERTRALINE 100 MG TABLET PO SCH (09:39)
[2019-03-30] MEDS: PANTOPRAZOLE 40 MG TABLET PO SCH (09:39)
[2019-03-30] MEDS: metFORMIN 500 MG TABLET PO SCH ×2 (09:39→20:40)
[2019-03-30] MEDS: FERROUS SULFATE 325 MG TABLET PO SCH (09:39)
[2019-03-30] MEDS: oxyCODONE/ACETAMINOPHEN 5-325 MG TABLET PO PRN ×2 (09:40→20:40)
[2019-03-30] MEDS: CHLORHEXIDINE 0.12% ORAL RINSE 60 ML BOTTLE SWISH/SPIT SCH ×2 (09:40→20:45)
[2019-03-30] MEDS: OLANZapine 5 MG TABLET PO SCH (20:40)
[2019-03-30] MEDS: ATORVASTATIN 40 MG TABLET PO SCH (20:40)
[2019-03-31 04:38] LABS: Basophils % 0.5 % (0.0-0.8); Eosinophils # 0.3 10*3/uL (0.0-0.87); Eosinophils % 5.1 % (0.00-10.9); Hematocrit 28.4 VOL% (35.7-47.0); Immature Granulocytes % 0.3 %; Immature Granulocytes Absolute 0.02 #; Lymphocytes # 1.8 10*3/uL (1.4-4.0); Lymphocytes % 27.8 % (21.3-54.2); Mean Corpuscular HGB Conc 31.7 GM/DL (32-36); Mean Corpuscular Volume 86.9 FL (87-102); Mean Platelet Volume 11.7 FL (9.6-12.0); Monocytes % 8.1 % (1.7-12.7); Neutrophils % 58.2 % (38.7-73.9); Platelet Count 196 T/CUMM (130-400); Red Blood Count 3.27 MC/CUMM (3.8-5.5); White Blood Count 6.4 T/CUMM (4-12)
[2019-03-31 05:02] LABS: Alanine Aminotransferase 29 U/L (13-56); Albumin 2.3 G/DL (3.4-5.0); Alkaline Phosphatase 61 U/L (45-117); Aspartate Amino Transferase 25 U/L (0-37); Bilirubin,Direct < 0.050 MG/DL (0.0-0.20); Bilirubin,Indirect 0.5 MG/DL (0.0-1.0); Blood Urea Nitrogen 10 MG/DL (7-18); Calcium 8.4 MG/DL (8.5-10.1); Estimated Glom Filtration Rate 145 ML/MIN; Glucose 125 MG/DL (74-106); Osmolality,Calculated 278.4 MOS/KG (273-304); Total Protein 6.2 G/DL (6.4-8.3)
[2019-03-31 05:13] LABS: Troponin I 0.813 NG/ML (0.00-0.045)
[2019-03-31] MEDS: INSULIN REGULAR 100 UNIT/ML SUBCUT SCH ×2 (09:45→13:14)
[2019-03-31] MEDS: METOPROLOL TARTRATE 25 MG TABLET PO SCH (09:46)
[2019-03-31] MEDS: metFORMIN 500 MG TABLET PO SCH (09:46)
[2019-03-31] MEDS: DOCUSATE SODIUM 100 MG CAPSULE PO SCH (09:46)
[2019-03-31] MEDS: BRIMONIDINE/TIMOLOL OPH SOLN 5 ML BOTTLE BOTH EYES SCH (09:46)
[2019-03-31] MEDS: FERROUS SULFATE 325 MG TABLET PO SCH (09:46)
[2019-03-31] MEDS: ASPIRIN EC 81 MG TABLET PO SCH (09:46)
[2019-03-31] MEDS: hydroCHLOROthiazide 25 MG TABLET PO SCH (09:46)
[2019-03-31] MEDS: SERTRALINE 100 MG TABLET PO SCH (09:47)
[2019-03-31] MEDS: PANTOPRAZOLE 40 MG TABLET PO SCH (09:47)
[2019-03-31] MEDS: CHLORHEXIDINE 0.12% ORAL RINSE 60 ML BOTTLE SWISH/SPIT SCH (09:47)
[2019-03-31 12:19] VITALS: BP 125/91
[2019-03-31] MEDS ORDERED: hydrALAZINE 25 MG TABLET PO SCH (15:00)
== END 2019-03-31 15:47 | disposition home health service (06) | DRG 236 ==
LOC: N.4E 03-25 10:08 → N.CVR 03-26 12:23 → N.TELES 03-27 11:43